=== PATIENT | male | born 1985 | race Hispanic/Latino ===

== ENCOUNTER 2023-06-13 03:31 | Emergency (ER) | payer OTHER ==
--- OUTSIDE RECORDS SUMMARY | 2023-06-13 03:36 | XMS REPORT | Continuity of Care Document ---
:1985 Author Organization [facility] t Address [address] [place] [address] Care Team Providers Name Role Phone Asked, No Pcp Primary Care Physician Unavailable DR MIKAEL IRVIN Attending Clinician Unavailable DR MIKAEL IRVIN Admitting Clinician Unavailable Payers Payer Name Policy Type Policy Number Effective Date Expiration Date Jade hernandez COVID VACCINE [id number] 2020-10-30 00:00:00 ADMIN / TESTING Problems Condition Condition Condition Status Onset Resolution Last Treating Co mments Source Name Details Category Date Date Treatment Clinician Date Acute low Acute low Disease Active 2016-10 [facility] back pain back pain 2-18 st with with 00:00: [facility]osp[facility] left-sided left-sided 00 l sciatica sciatica Allergies, Adverse Reactions, Alerts This patient has no known allergies or adverse reactions. Social History Social Habit Start Date Stop Date Quantity Comments Source Gender identity [facility] of Social 2018-08-26 2018-08-[address] function 00:00:00 00:00:00 Hospital Alcohol intake 2017-09-26 2017-09-26 Current [facility] 00:00:00 00:00:00 non-drinker of Hospital alcohol (finding) Tobacco use and 2017-09-25 2017-09-25 Smokeless [facility] 00:00:00 00:00:00 tobacco non-user Hospital Sex Assigned At [birth year] SUNIL Salcedo Araseli kes [facility] Smoking Status Start Date Stop Date Source Never smoked tobacco [facility] Medications This patient has no known medications. Immunizations Ordered Immunization Filled Immunization Date Status Commen ts Source Name Name Covid-19 Vaccine 2020-11-[address] [facility] MRNA (PF) 12yr+ 00:00:00 Medical C enter (Pfizer/BioNTech)(IM M601) Covid-19 Vaccine 2020-10-[address] [facility] MRNA (PF) 12yr+ 00:00:00 Medical C enter (Pfizer/BioNTech)(IM M601) Procedures This patient has no known procedures. Plan of Care Planned Activity Planned Date Details Comments Source Future Scheduled 2023-06-09 Influenza Vaccine (#1) [facility] 00:00:00 [code = Influenza Vaccine Me [facility]ical Center (#1)] Future Scheduled 2023-06-03 COVID-19 VACCINE (#1) [facility] 14:28:06 [code = COVID-19 VACCINE Hos pital (#1)] Future Scheduled 2023-06-03 INFLUENZA VACCINE (#1) [facility] Test 14:28:06 [code = INFLUENZA VACCINE Ho spital (#1)] Future Scheduled 2022-10-[address] [facility] 00:00:00 (12+) [code = DEPRESSION [facility] S[facility]EN[facility] (12+)] Future Scheduled 2021-01-13 COVID-19 VACCINE (3 - [facility] 00:00:00 Booster for Pfizer Medical C enter series) [code = COVID-19 VACCINE (3 - Booster for Pfizer series)] Future Scheduled 2019-12-25 Lipid panel (procedure) [facility] 00:00:00 [code = 95469688] Medical Ce nter Future Scheduled 2003-12-25 DTAP/TDAP/TD VACCINES ([address] [facility] 00:00:00 - Tdap) [code = Medical Cent er DTAP/TDAP/TD VACCINES (1 - Tdap)] Future Scheduled 2002 HEPATITIS C SCREENING [facility] 00:00:00 [code = HEPATITIS C Medical Center SCREENING] Future Scheduled 1999-12-[address] [facility] 00:00:00 virus screening Medical Cent er (procedure) [code = 495322198] Future Scheduled [address] [facility] Test 00:00:00 Counseling and Screening [facility] (12+) [code = Tobacco Cessation Counseling and Screening (12+)] Encounters Start End Encounter Admission Attending Care Care Encounter Source Date/Time Date/Time Type Type Clinicians Facility Department ID 2020-11-18 2020-11-18 Outpatient [facility] [id number] [facility] 00:00:00 00:00:00 2020-10-30 2020-10-30 Outpatient [facility] [id number] [facility] 00:00:00 00:00:00 2018-04-06 2018-04-06 Outpatient Brady [place] [id number] [facility] 07:03:00 11:16:00 MIKAEL Swann [facility] Results This patient has no known results.
--- NOTE | 2023-06-13 04:09 | EDPHYS ---
Physician Documentation [facility] Name: Will Marie Age: 37 yrs Sex: Male : 1985 Arrival Date: 06/13/2023 Time: 03:31 Bed 7 Private MD: ED Physician Dago Hilario HPI: 06/13 04:04 This 37 yrs old Male presents to ER via EMS with complaints of Ankle Injury. rosalba 04:04 The patient presents with decreased range of motion, pain. The complaints affect the rosalba left ankle. Onset: The symptoms/episode began/occurred just prior to arrival. Context: The mechanism of injury involved inversion of the affected ankle. The patient is unable to bear weight. the patient is able to ambulate. Associated signs and symptoms: The patient has no apparent associated signs or symptoms. Modifying factors: The symptoms are alleviated by elevation of extremity, ice packs, the symptoms are aggravated by weight bearing, movement. Severity of symptoms: At their worst the symptoms were moderate, in the emergency department the symptoms are unchanged. The patient has not experienced similar symptoms in the past. Historical: - Allergies: 03:37 No Known Allergies; vc1 - Home Meds: 03:37 None [Active]; vc1 - PMHx: 03:37 None; vc1 - PSHx: 03:37 None; vc1 - Immunization history:: Client reports receiving the 2nd dose of the Covid vaccine, Last tetanus immunization: up to date. - Social history:: Smoking status: Patient denies any tobacco usage or history of. - Family history:: not pertinent. ROS: 04:04 Constitutional: Negative for fever, chills, and weight loss, Eyes: Negative for injury, rosalba pain, redness, and discharge, ENT: Negative for injury, pain, and discharge, Neck: Negative for injury, pain, and swelling, Cardiovascular: Negative for chest pain, palpitations, and edema, Respiratory: Negative for shortness of breath, cough, wheezing, and pleuritic chest pain, Abdomen/GI: Negative for abdominal pain, nausea, vomiting, diarrhea, and constipation, Back: Negative for injury and pain, : Negative for injury, bleeding, discharge, and swelling, Skin: Negative for injury, rash, and discoloration, Neuro: Negative for headache, weakness, numbness, tingling, and seizure, Psych: Negative for depression, anxiety, suicide ideation, homicidal ideation, and hallucinations, Allergy/Immunology: Negative for hives, rash, and allergies, Endocrine: Negative for neck swelling, polydipsia, polyuria, polyphagia, and marked weight changes, Hematologic/Lymphatic: Negative for swollen nodes, abnormal bleeding, and unusual bruising. 04:04 MS/extremity: Positive for decreased range of motion, pain, tenderness, of the right ankle and anterior aspect of right ankle. Exam: 04:04 Constitutional: This is a well developed, well nourished patient who is awake, alert, rosalba and in no acute distress. Head/Face: Normocephalic, atraumatic. Eyes: Pupils equal round and reactive to light, extra-ocular motions intact. Lids and lashes normal. Conjunctiva and sclera are non-icteric and not injected. Cornea within normal limits. Periorbital areas with no swelling, redness, or edema. ENT: Nares patent. No nasal discharge, no septal abnormalities noted. Tympanic membranes are normal and external auditory canals are clear. Oropharynx with no redness, swelling, or masses, exudates, or evidence of obstruction, uvula midline. Mucous membranes moist. Neck: Trachea midline, no thyromegaly or masses palpated, and no cervical lymphadenopathy. Supple, full range of motion without nuchal rigidity, or vertebral point tenderness. No Meningismus. Chest/axilla: Normal chest wall appearance and motion. Nontender with no deformity. No lesions are appreciated. Cardiovascular: Regular rate and rhythm with a normal S1 and S2. No gallops, murmurs, or rubs. Normal PMI, no JVD. No pulse deficits. Respiratory: Lungs have equal breath sounds bilaterally, clear to auscultation and percussion. No rales, rhonchi or wheezes noted. No increased work of breathing, no retractions or nasal flaring. Abdomen/GI: Soft, non-tender, with normal bowel sounds. No distension or tympany. No guarding or rebound. No evidence of tenderness throughout. Back: No spinal tenderness. No costovertebral tenderness. Full range of motion. Male : Normal genitalia with no discharge or lesions. Skin: Warm, dry with normal turgor. Normal color with no rashes, no lesions, and no evidence of cellulitis. Neuro: Awake and alert, GCS 15, oriented to person, place, time, and situation. Cranial nerves II-XII grossly intact. Motor strength 5/5 in all extremities. Sensory grossly intact. Cerebellar exam normal. Normal gait. Psych: Awake, alert, with orientation to person, place and time. Behavior, mood, and affect are within normal limits. 04:04 Musculoskeletal/extremity: Extremities: grossly normal except: noted in the left lateral ankle and anterior aspect of left ankle: decreased ROM, pain, swelling, tenderness, ROM: limited active range of motion due to pain, limited passive range of motion due to pain, in the left lateral ankle and anterior aspect of left ankle, Circulation is intact in all extremities. Sensation intact. Compartment Syndrome exam of affected extremity: is normal. Weight bearing: can bear weight with assistance only, uses crutches, DVT Exam: negative Homans' sign noted on exam, no appreciated bluish discoloration, no erythema, no increased warmth, pain, swelling, tenderness. Vital Signs: 03:34 BP 149 / 97; Pulse 74; Resp 18; Temp 97.9; Pulse Ox 98% ; Weight 113.4 kg; Height 6 ft. vc1 2 in. ; Pain 6/10; 04:33 BP 143 / 94; Pulse 76; Resp 17 S; Pulse Ox 99% on R/A; vc1 03:34 Body Mass Index 32.10 (113.40 kg, 187.96 cm) vc1 03:34 Pain Scale: Adult vc1 MDM: 03:48 Patient medically screened. [facility] 04:07 Differential diagnosis: fracture, sprain. Data reviewed: vital signs, nurses notes, [facility] radiologic studies, plain films. Consideration of Admission/Observation Escalation of care including admission/observation considered. I considered the following discharge prescriptions or medication management in the emergency department Medications were administered in the Emergency Department. See MAR. Independent interpretation of the following test(s) in the Emergency Department X-Ray: My interpretation is stsn no gross fx. Test considered but Not performed: Labs: no labs. Care significantly affected by the following chronic conditions: none. Counseling: I had a detailed discussion with the patient and/or guardian regarding the historical points, exam findings, and any diagnostic results supporting the discharge/admit diagnosis, radiology results, the need for outpatient follow up, for definitive care, a family practitioner, a orthopedic surgeon. 06/13 03:46 Order name: Ankle Left 3 View XRAY [facility] 06/13 04:04 Order name: Ice pack; Complete Time: 04:32 rosalba 06/13 04:04 Order name: Walking boot; Complete Time: 04:32 rosalba Administered Medications: No medications were administered Disposition Summary: 06/13/23 04:09 Discharge Ordered Location: Home rosalba Problem: new rosalba Symptoms: have improved rosalba Condition: Stable rosalba Diagnosis - Sprain of ankle rosalba - Sprain of calcaneofibular ligament of left ankle rosalba Followup: rosalba - With: Private Physician - When: 2 - 3 days - Reason: Recheck today's complaints, Continuance of care, Re-evaluation by your physician Followup: rosalba - With: Ganesh Clark MD - When: 2 - 3 days - Reason: Recheck today's complaints, Re-evaluation by your physician Discharge Instructions: - Discharge Summary Sheet rosalba - Ankle Sprain rosalba - Ankle Sprain, Xlow-dy-[id number] rosalba - Ankle Pain rosalba Forms: - Medication Reconciliation Form rosabla - Thank You Letter rosalba - Antibiotic Education rosalba - Prescription Opioid Use rosalba - Patient Portal Instructions rosalba - Leadership Thank You Letter rosalba Signatures: Dispatcher [employer] Dago Muñoz MD MD cha Calcote, Vanessa, RN RN vc1
--- NOTE | 2023-06-13 04:09 | ER ---
Nurse's Notes [facility] Name: Will Marie Age: 37 yrs Sex: Male : 1985 Arrival Date: 06/13/2023 Time: 03:31 Bed 7 Private MD: Diagnosis: Sprain of ankle;Sprain of calcaneofibular ligament of left ankle Presentation: 06/13 03:34 Chief complaint: Patient states: I was stepping off of the ambulance and stepped onto a vc1 sewage grate and my ankle gave out. Coronavirus screen: Vaccine status: Patient reports receiving the 2nd dose of the covid vaccine. [employer] At this time, the client does not indicate any symptoms associated with coronavirus-19. Ebola Screen: Patient negative for fever greater than or equal to 101.5 degrees Fahrenheit, and additional compatible Ebola Virus Disease symptoms Patient denies exposure to infectious person. Patient denies travel to an Ebola-affected area in the 21 days before illness onset. No symptoms or risks identified at this time. Initial Sepsis Screen: Does the patient meet any 2 criteria? No. Patient's initial sepsis screen is negative. Does the patient have a suspected source of infection? No. Patient's initial sepsis screen is negative. Risk Assessment: Do you want to hurt yourself or someone else? Patient reports no desire to harm self or others. Onset of symptoms was June 13, 2023. 03:34 Method Of Arrival: EMS: [facility] vc1 03:34 Acuity: NINO 3 vc1 Triage Assessment: 03:38 General: Appears in no apparent distress. uncomfortable, Behavior is calm, cooperative, vc1 appropriate for age. Pain: Complains of pain in left lateral malleolus Pain does not radiate. Pain currently is 6 out of 10 on a pain scale. Quality of pain is described as pressure, Pain began suddenly, Is continuous, Aggravated by repositioning, weight bearing, Noted to be grimacing. EENT: No deficits noted. No signs and/or symptoms were reported regarding the EENT system. Neuro: Level of Consciousness is awake, alert, obeys commands, Oriented to person, place, time, situation, Appropriate for age. Cardiovascular: No deficits noted. Respiratory: Airway is patent Respiratory effort is even, unlabored, Respiratory pattern is regular, symmetrical. GI: No deficits noted. No signs and/or symptoms were reported involving the gastrointestinal system. : No deficits noted. No signs and/or symptoms were reported regarding the genitourinary system. Derm: No deficits noted. No signs and/or symptoms reported regarding the dermatologic system. Musculoskeletal: Swelling present in left lateral malleolus Reports pain in left lateral malleolus. Historical: - Allergies: 03:37 No Known Allergies; vc1 - Home Meds: 03:37 None [Active]; vc1 - PMHx: 03:37 None; vc1 - PSHx: 03:37 None; vc1 - Immunization history:: Client reports receiving the 2nd dose of the Covid vaccine, Last tetanus immunization: up to date. - Social history:: Smoking status: Patient denies any tobacco usage or history of. - Family history:: not pertinent. Screenin:41 [facility] ED Fall Risk Assessment (Adult) History of falling in the last 3 months, vc1 including since admission No falls in past 3 months (0 pts) Confusion or Disorientation No (0 pts) Intoxicated or Sedated No (0 pts) Impaired Gait No (0 pts) Mobility Assist Device Used No (0 pt) Altered Elimination No (0 pt) Score/Fall Risk Level 0 - 2 = Low Risk Oriented to surroundings, Maintained a safe environment, Educated pt \T\ family on fall prevention, incl call for assistance when getting out of bed. Abuse screen: Denies threats or abuse. Nutritional screening: No deficits noted. Tuberculosis screening: No symptoms or risk factors identified. Assessment: 03:40 General: see triage assessment . vc1 04:33 Reassessment: Patient appears in no apparent distress at this time. No changes from vc1 previously documented assessment. Patient and/or family updated on plan of care and expected duration. Pain level reassessed. Patient is alert, oriented x 3, equal unlabored respirations, skin warm/dry/pink. Vital Signs: 03:34 BP 149 / 97; Pulse 74; Resp 18; Temp 97.9; Pulse Ox 98% ; Weight 113.4 kg; Height 6 ft. vc1 2 in. ; Pain 6/10; 04:33 BP 143 / 94; Pulse 76; Resp 17 S; Pulse Ox 99% on R/A; vc1 03:34 Body Mass Index 32.10 (113.40 kg, 187.96 cm) vc1 03:34 Pain Scale: Adult vc1 ED Course: 03:34 Patient arrived in ED. vc1 03:37 Triage completed. vc1 03:38 Arm band placed on right wrist. vc1 03:40 Ice pack to injury. vc1 03:41 Patient has correct armband on for positive identification. Bed in low position. Call vc1 light in reach. Pulse ox on. NIBP on. 03:45 Dago Hilario MD is Attending Physician. rosalba 04:08 Ganesh Clark MD is Referral Physician. rosalba 04:09 Ankle Left 3 View XRAY In Process Unspecified. EDMS 04:32 Ceci Pinzon, RN is Primary Nurse. vc1 04:54 No provider procedures requiring assistance completed. Patient did not have IV access vc1 during this emergency room visit. Administered Medications: No medications were administered Medication: 03:41 VIS not applicable for this client. vc1 Outcome: 04:09 Discharge ordered by . rosalba 04:54 Discharged to home ambulatory. vc1 04:54 Condition: good 04:54 Discharge instructions given to patient, Instructed on discharge instructions, follow up and referral plans. Demonstrated understanding of instructions, follow-up care. 04:56 Patient left the ED. vc1 Signatures: Dispatcher [employer] EDMA Dago Hilario MD MD cha Calcote, Vanessa, RN RN vc1 Corrections: (The following items were deleted from the chart) 03:37 03:34 BP 149 / ???; Pulse 97bpm; Resp 18bpm; Pulse Ox 98%; Temp 97.9F; 113.4 kg; Height vc1 6 ft. 2 in.; BMI: 32.1; Pain 6/10, Adult; vc1
[2023-06-13 05:00] VITALS: TEMP 97.9
[2023-06-13 05:02] VITALS: BP 143/94; O2SAT 99
== END 2023-06-13 04:56 | disposition home or self-care (01) ==
LOC: ER 03:31
DX: S93.412A Sprain of calcaneofibular ligament of left ankle, initial encounter (principal); X50.1XXA Overexertion from prolonged static or awkward postures, initial encounter; Y93.89 Activity, other specified; Y92.9 Unspecified place or not applicable
CPT/HCPCS: 99283